=== PATIENT | female | born 1980 | race Caucasian/White ===

== ENCOUNTER 2019-03-27 08:41 | Emergency (ER) | payer OTHER, SELFPAY ==
[2019-03-27 08:57] VITALS: BP 146/102; PULSE 93; RESP 16; TEMP 36.8; O2SAT 100
--- NOTE | 2019-03-27 09:06 | ED.DENTAL ---
HPI - Dental/Oral General Chief complaint: Dental/Oral Stated complaint: tooth ache Time Seen by Provider: 03/27/19 09:06 Source: patient and RN notes reviewed History of Present Illness HPI Narrative: Patient is a 39-year-old female that presents the urgent care in [facility] with complaints of lower right molar avulsion. Patient states that she broke it off today. However, patient was seen on January 29 with similar story. Patient states that she is unable to get into her dentist for 2-1/2 months, which she is also stated in the past. Patient states that she is taken Tylenol and ibuprofen prior to arrival without any relief. Patient denies any fevers, nausea, vomiting. No other acute complaints. No acute distress noted. Patient read the plan of care. Related Data Allergies Allergy/AdvReac Type Severity Reaction Status Date / Time opiates AdvReac Hallucinati Uncoded 01/29/19 18:05 ng Review of Systems Review of Systems: Narrative: CONSTITUTIONAL: Denies fever, chills, or sweats. EYES: Denies visual changes, redness, or discharge. ENT: Denies rhinorrhea, congestion, sore throat, or otalgia. Reports of lower right dental pain CARDIOVASCULAR: Denies chest pain, palpitations, or edema. RESPIRATORY: Denies cough or dyspnea. GASTROINTESTINAL: Denies abdominal pain, nausea, vomiting, or diarrhea. GENITOURINARY: Denies dysuria or hematuria. SKIN: Denies rash or itching. MUSCULOSKELETAL: Denies back pain, joint pain, or myalgia. NEUROLOGIC: Denies headache, numbness, or weakness. All other systems reviewed are negative, except as documented in HPI. PMFSH Comments At the time of my signature, I reviewed and agree with the nursing past medical, surgical, social, and family history. There is no relevant family history pertinent to the patient complaint. Exam Narrative: Exam Narrative: GENERAL: This is a well-nourished, well-developed patient, tearful HEAD: normocephalic, atraumatic. EYES: PERRL. Sclera clear/white. Vision is grossly intact. EARS: External ears normal NOSE: External nose normal with no obvious nasal discharge THROAT: Mucous membranes moist, posterior pharynx clear. Notable buccal avulsion to #31 with mild erythema and slight edema notable caries throughout dentition NECK: Neck supple, non-tender without lymphadenopathy CARDIOVASCULAR: Regular rate and rhythm without murmurs, gallops, or rubs. RESPIRATORY: Clear to auscultation. Breath sounds equal bilaterally. No wheezes, rales, or rhonchi. SKIN: warm, intact with no suspicious lesions or rash, good texture and turgor. NEURO: awake, alert, and oriented to person, place and time. There were no obvious focal neurologic abnormalities. EXTREMITIES: No clubbing, cyanosis, or edema. Course Vital Signs Vital signs: Vital Signs Temperature 98.2 F 03/27/19 08:57 Pulse Rate 93 03/27/19 08:57 Respiratory Rate 16 03/27/19 08:57 Blood Pressure 146/102 H 03/27/19 08:57 Pulse Oximetry 100 03/27/19 08:57 Temperature 98.2 F 03/27/19 08:57 Pulse Rate 93 03/27/19 08:57 Respiratory Rate 16 03/27/19 08:57 Blood Pressure 146/102 H 03/27/19 08:57 Pulse Oximetry 100 03/27/19 08:57 Reviewed?patient is informed that they may have pre-hypertension or hypertension based on a blood pressure reading in the department. I recommend the patient call the primary care provider listed on their discharge instructions or a physician of their choice this week to arrange follow-up for further evaluation of possible pre-hypertension or hypertension. MDM - Dental/Oral MDM Narrative Medical decision making narrative: Advised the patient to use appropriate doses of Tylenol/ibuprofen as needed for pain. May use ice or warm compress to the lower right jaw for comfort. If you develop any increase in swelling, fever, nausea, vomiting-start and complete antibiotic regimen as prescribed. Use Prevention mouthwash [id number] twice a day. Follow-up with PCP/dentist wit
[2019-03-27 09:18] VITALS: BP 136/86
== END 2019-03-27 09:18 | disposition home or self-care (01) ==
PROVIDERS: Emergency Provider Nurse Practitioner Family
DX: S02.5XXA Fracture of tooth (traumatic), initial encounter for closed fracture (principal); X58.XXXA Exposure to other specified factors, initial encounter
CPT/HCPCS: 99213; G0463